=== PATIENT | female | born 1990 ===

== ENCOUNTER 2020-10-29 17:56 | Observation (INO) | payer OTHER ==
[2020-10-29] MEDS ORDERED: LACTATED RINGERS 1,000 ML IV ONE (18:56)
[2020-10-29 19:20] LABS: Bacteria,Urine 2+ /HPF (Negative); Bilirubin,Urine NEG (Negative); Blood,Urine NEG (Negative); Color,Urine Yellow (Yellow); Mucus,Urine FEW /HPF; Protein,Urine <15 mg/dL mg/dL (Negative); Urobilinogen,Urine < 2.0 mg/dL (<2.0)
--- NOTE | 2020-10-29 21:49 | History and Physical Report ---
History of Present Illness Date of examination: 10/29/20 Chief complaint: lower abdominal pain and break my water History of present illness: at 37.1wks with care at [facility]. Pt c/o lower abdominal pain and leakage of fluid earlier today. pt admits to movement or vaginal bleeding or headache. pt speaks Danish only. Pt has her significant other to bedside that speaks some Slovak. Past History Past Medical History: no pertinent history Past Surgical History: section (x2) Family/Genetic History: none Social history: no significant social history - Obstetrical History : 4 Para: 3 Hx # Term Pregnancies: 3 (c/s x2) Number of Living Children: 3 Medications and Allergies Allergies Allergy/AdvReac Type Severity Reaction Status Date / Time No Known Allergies Allergy Verified 10/29/20 18:56 Review of Systems All systems: negative (lower abd pain and leakage of fluid) - Vital Signs Vital signs: Vital Signs Pulse Pulse Ox 73 97 10/29/20 18:55 10/29/20 18:55 Temp Pulse Resp BP Pulse Ox 98.6 F 76 20 118/61 98 10/29/20 18:58 10/29/20 21:40 10/29/20 18:58 10/29/20 18:58 10/29/20 21:40 - Physical Exam Breasts: Positive: deferred Cardiovascular: Regular rate Lungs: Positive: Normal air movement Abdomen: Positive: normal appearance Uterus: Positive: enlarged Extremities: Positive: normal - Obstetrical FHR: category 1 Cervical Dilatation: 1 (per triage nurse) Cervical Effacement Percentage: 50 station: -4 Uterine Contraction Pattern: Absent Results All other labs normal. Assessment and Plan Term with previous c/section x2, with urinary incontinence (ROM plus neg), presumed UTI from urinalysis and BPP 08/07 (8/10 with reactive NST) 1. Admit for observation and repeat BPP in am and see if no breathing persistent 2. Obtain records in am 3. For repeat section if non-reassuring FHR 4. Will feed pt now and then keep NPO after midnight 5. Will treat with ancef for presumed UTI and send urine culture Plan of care discussed with pt. All questions encouraged and answered.
[2020-10-29] MEDS ORDERED: fentaNYL 100 MCG/2 ML INJ IV PRN (21:54)
[2020-10-29] MEDS ORDERED: PROMETHAZINE 25 MG TAB PO PRN (21:54)
[2020-10-29] MEDS ORDERED: MINERAL OIL 30 ML ORAL LIQD PO PRN (21:54)
[2020-10-29] MEDS ORDERED: LOPERAMIDE 2 MG CAP PO PRN (21:54)
[2020-10-29] MEDS ORDERED: CARBOPROST TROMETHAMINE 250 MCG/1 ML INJ IM PRN (21:54)
[2020-10-29] MEDS ORDERED: METHYLERGONOVINE MALEATE 0.2 MG/ML VIAL IM PRN (21:54)
[2020-10-29] MEDS ORDERED: ACETAMINOPHEN 325 MG TAB PO PRN (21:54)
[2020-10-29] MEDS ORDERED: OXYTOCIN 10 UNIT/1 ML INJ IM PRN (21:54)
[2020-10-29] MEDS ORDERED: miSOPROStol 200 MCG TAB PR PRN (21:54)
[2020-10-29] MEDS ORDERED: ONDANSETRON 4 MG/2 ML INJ IV PRN (21:54)
[2020-10-29] MEDS ORDERED: LIDOCAINE (2%) 20 MG/1 ML VIAL 20 ML MDV INFILTRATI ONE (21:54)
[2020-10-29] MEDS ORDERED: NalbUPHINE 10 MG/1 ML INJ IV PRN (21:54)
[2020-10-29] MEDS ORDERED: ePHEDrine SULFATE 50 MG/1 ML INJ IV PRN (21:54)
[2020-10-29] MEDS ORDERED: TERBUTALINE 1 MG/1 ML INJ SUB-Q PRN (21:54)
[2020-10-29] MEDS ORDERED: OXYTOCIN DRIP 30 UNITS/500 ML BAG IV SCH (22:00)
[2020-10-29 23:03] LABS: Hematocrit 35.8 % (30.3-42.9); Mean Corpuscular HGB Conc 34 % (30-34); Mean Corpuscular Volume 83 fl (79-97); Platelet Count 220 K/mm3 (140-440); Red Blood Count 4.34 M/mm3 (3.65-5.03); Red Cell Distribution Width 13.8 % (13.2-15.2)
--- NOTE | 2020-10-29 23:46 | Ultrasound Report ---
LIMITED OBSTETRICAL ULTRASOUND WITH BIOPHYSICAL PROFILE HISTORY: Ruptured membranes. FINDINGS: Limited obstetrical ultrasound was performed demonstrating a single viable intrauterine pre gnancy in the cephalic position with heart tones of 135 bpm. Amniotic fluid index is normal at 9.8. The largest pocket is quadrant 1 (4.5 cm). Biophysical profile is 6/8. 2 points were received for movement, posture/tone and amnioti c fluid volume. 0 points were received for breathing movements. IMPRESSION: 1. Unremarkable limited abdominal ultrasound. 2. Biophysical profile is 6/8. Signer Name: Orlando Mcgowan MD Signed: 10/29/2020 11:42 PM Workstation Name: [id number]
[2020-10-29] MEDS: LACTATED RINGERS 1,000 ML IV SCH (23:49)
[2020-10-30] MEDS ORDERED: ceFAZolin/NS 1 GM/50 ML 1 GM/50 ML BAG IV SCH (06:00)
[2020-10-30] MEDS: LACTATED RINGERS 1,000 ML IV SCH (06:08)
--- NOTE | 2020-10-30 09:12 | Event Note ---
Date: 10/30/20 Repeat BPP 10/07; will discharge pt home
--- NOTE | 2020-10-30 09:14 | Ultrasound Report ---
ULTRASOUND BIOPHYSICAL PROFILE INDICATION / CLINICAL INFORMATION: follow up previous BPP 08/07. COMPARISON: 10/29/2020 FINDINGS: BREATHING MOVEMENT = 2 GROSS BODY MOVEMENT = 2 TONE = 2 QUALITATIVE AMNIOTIC FLUID VOLUME = 2 TOTAL BIOPHYSICAL SCORE = 10/07 PRESENTATION: Cephalic. HEART RATE (beats per minute): 131 IMPRESSION: 1. biophysical profile = 10/07 Signer Name: Balaji John MD Signed: 10/30/2020 9:09 AM Workstation Name: [id number]
[2020-10-30 10:06] VITALS: BP 116/65
== END 2020-10-30 11:03 | disposition home or self-care (01) ==
LOC: TRG 17:56 → APU 17:57 → LD 21:54 → TRG 21:54
PROVIDERS: ADMIT Obstetrics & Gynecology; ATTEND Obstetrics & Gynecology
DX: O26.893 Other specified pregnancy related conditions, third trimester (principal); R10.30 Lower abdominal pain, unspecified; Z3A.37 37 weeks gestation of pregnancy; Z98.891 History of uterine scar from previous surgery
CPT/HCPCS: 36415; 59025; 76815; 76819; 81001; 84112; 85027; 86850; 86900; 86901; 87086; 96365; G0378; J0690; J7120

== ENCOUNTER 2020-11-17 11:32 | Outpatient (CLI) | payer OTHER ==
[2020-11-17 11:54] VITALS: BP 133/68
[2020-11-17] MEDS ORDERED: LACTATED RINGERS 1,000 ML IV ONE (13:00)
[2020-11-17 14:10] LABS: Bilirubin,Urine NEG (Negative); Blood,Urine NEG (Negative); Color,Urine Yellow (Yellow); Mucus,Urine FEW /HPF; Protein,Urine <15 mg/dL mg/dL (Negative); Urobilinogen,Urine < 2.0 mg/dL (<2.0)
[2020-11-17 14:12] LABS: Hematocrit 35.6 % (30.3-42.9); Hemoglobin 11.8 gm/dl (10.1-14.3); Mean Corpuscular HGB Conc 33 % (30-34); Mean Corpuscular Volume 83 fl (79-97); Platelet Count 229 K/mm3 (140-440); Red Blood Count 4.29 M/mm3 (3.65-5.03); Red Cell Distribution Width 14.3 % (13.2-15.2)
== END 2020-11-17 15:00 | disposition home or self-care (01) ==
LOC: TRG 11:32 → APU 11:33 → TRG 15:00
PROVIDERS: ATTEND Obstetrics & Gynecology
DX: O62.9 Abnormality of forces of labor, unspecified (principal); O48.0 Post-term pregnancy; Z3A.40 40 weeks gestation of pregnancy
CPT/HCPCS: 36415; 59025; 81001; 85027; 86850; 86900; 86901; 96360; J7120

== ENCOUNTER 2020-11-18 04:36 | Inpatient (IN) | payer MEDICAID, OTHER ==
[2020-11-18] MEDS ORDERED: miSOPROStol 200 MCG TAB ONE (05:32)
[2020-11-18 06:03] LABS: Hematocrit 38.3 % (30.3-42.9); Hemoglobin 12.2 gm/dl (10.1-14.3); Mean Corpuscular HGB Conc 32 % (30-34); Mean Corpuscular Volume 83 fl (79-97); Platelet Count 266 K/mm3 (140-440); Red Blood Count 4.64 M/mm3 (3.65-5.03); Red Cell Distribution Width 14.9 % (13.2-15.2)
[2020-11-18] MEDS ORDERED: miSOPROStol 200 MCG TAB PR ONE (06:05)
[2020-11-18] MEDS ORDERED: ACETAMINOPHEN 325 MG TAB PO PRN (06:06)
[2020-11-18] MEDS ORDERED: MINERAL OIL 30 ML ORAL LIQD PO PRN (06:06)
[2020-11-18] MEDS ORDERED: LIDOCAINE (2%) 20 MG/1 ML VIAL 20 ML MDV INFILTRATI ONE (06:06)
[2020-11-18] MEDS ORDERED: ePHEDrine SULFATE 50 MG/1 ML INJ IV PRN (06:06)
[2020-11-18] MEDS ORDERED: NalbUPHINE 10 MG/1 ML INJ IV PRN (06:06)
[2020-11-18] MEDS ORDERED: CARBOPROST TROMETHAMINE 250 MCG/1 ML INJ IM PRN (06:06)
[2020-11-18] MEDS ORDERED: OXYTOCIN 10 UNIT/1 ML INJ IM PRN (06:06)
[2020-11-18] MEDS ORDERED: METHYLERGONOVINE MALEATE 0.2 MG/ML VIAL IM PRN (06:06)
[2020-11-18] MEDS ORDERED: TERBUTALINE 1 MG/1 ML INJ SUB-Q PRN (06:06)
[2020-11-18] MEDS ORDERED: fentaNYL 100 MCG/2 ML INJ IV PRN (06:06)
[2020-11-18] MEDS ORDERED: LOPERAMIDE 2 MG CAP PO PRN (06:06)
[2020-11-18] MEDS ORDERED: miSOPROStol 200 MCG TAB PR PRN (06:06)
[2020-11-18] MEDS ORDERED: LACTATED RINGERS 1,000 ML IV SCH (06:15)
[2020-11-18 06:22] LABS: Hepatitis C Virus Antibody Non-Reactive (NonReactive)
[2020-11-18] MEDS ORDERED: MAGNESIUM HYDROXIDE (MOM) ORAL LIQD UDC PO PRN (06:25)
[2020-11-18] MEDS ORDERED: ONDANSETRON 4 MG/2 ML INJ IV PRN (06:25)
[2020-11-18] MEDS ORDERED: diphenhydrAMINE 25 MG CAP PO PRN (06:25)
[2020-11-18] MEDS ORDERED: LANOLIN/ZINC/DIMETHICONE (LANSINOH) 7 GM TP PRN (06:25)
[2020-11-18] MEDS ORDERED: PROMETHAZINE 25 MG TAB PO PRN (06:25)
[2020-11-18] MEDS ORDERED: WITCH HAZEL/ GLYCERIN PAD TP PRN (06:25)
--- NOTE | 2020-11-18 06:40 | History and Physical Report ---
History of Present Illness Date of examination: 11/18/20 Date of admission: 11/18/20 06:09 Chief complaint: contractions History of present illness: at 39.2wks by LMP c/w U/Sound with care at [facility] covered by [employer]. Pt c/o feeling ctx and screaming. Pt speaks cameroonian only. Pt already with SROM, time unknown, denies vaginal bleeding or headache. records found post delivery show pt had previous c/section x2 and was scheduled for repeat c/section later this week. labs with O+, neg screen, RPR, HepBsAg and HIV all neg; Abnormal 1hrgtt with normal 3hrgtt. Past History Past Medical History: no pertinent history Past Surgical History: section (x2) Social history: no significant social history - Obstetrical History Expected Date of Delivery: 11/23/20 Actual Gestation: 39 Week(s) 2 Day(s) : 4 Number of Living Children: 3 Medications and Allergies Allergies Allergy/AdvReac Type Severity Reaction Status Date / Time No Known Allergies Allergy Verified 10/29/20 18:56 Home Medications Medication Instructions Recorded Confirmed Last Taken Type No Known Home Medications [No 10/30/20 10/30/20 Unknown History Reported Home Medications] Active Meds: Active Medications Acetaminophen (Acetaminophen 325 Mg Tab) 650 mg PO Q4H PRN PRN Reason: Pain, Mild (1-3) Bisacodyl (Bisacodyl 10 Mg Rect Supp) 10 mg PA BID PRN PRN Reason: Constipation Carboprost Tromethamine (Carboprost Tromethamine 250 Mcg/1 Ml Inj) 250 mcg IM ONCE PRN PRN Reason: Uterine Bleeding Diphenhydramine HCl (Diphenhydramine 25 Mg Cap) 25 mg PO Q6H PRN PRN Reason: Itching Ephedrine Sulfate (Ephedrine Sulfate 50 Mg/1 Ml Inj) 10 mg IV Q2M PRN PRN Reason: Hypotension Fentanyl (Fentanyl 100 Mcg/2 Ml Inj) 100 mcg IV Q2H PRN PRN Reason: Pain,Severe (7-10) LABOR PAIN Last Admin: 11/18/20 05:10 Dose: 100 mcg Documented by: Oxytocin/Sodium Chloride (Pitocin/Ns 30 Unit/500ml) 30 units in 500 mls @ 2 mls/hr IV TITR ANAID; Protocol Lactated Ringer's (Lactated Ringers) 1,000 mls @ 125 mls/hr IV DIRECT ANAID Oxytocin/Sodium Chloride (Pitocin/Ns 30 Unit/500ml) 30 units in 500 mls @ 40 mls/hr IV TITR ANAID; Protocol Ibuprofen (Ibuprofen 600 Mg Tab) 600 mg PO Q6H ANAID Loperamide HCl (Loperamide 2 Mg Cap) 2 mg PO ONCE PRN PRN Reason: give with Hemabate Magnesium Hydroxide (Magnesium Hydroxide (Mom) Oral Liqd Udc) 30 ml PO HS PRN PRN Reason: Constipation Methylergonovine Maleate (Methylergonovine Maleate 0.2 Mg/Ml Vial) 0.2 mg IM ONCE PRN PRN Reason: Uterine Bleeding Mineral Oil (Mineral Oil 30 Ml Oral Liqd) 30 ml PO QHS PRN PRN Reason: Constipation Misoprostol (Misoprostol 200 Mcg Tab) 800 mcg PA ONCE PRN PRN Reason: Uterine Bleeding Multi-Ingredient Ointment (Lanolin/Zinc/Dimethicone (Lansinoh) 7 Gm) 1 applic TP PRN PRN PRN Reason: Sore Nipples Multivitamins/Iron/Calcium ( Pqe79-Th Fumarate-Folic Acid Vit Tab) 1 each PO QDAY ANAID Nalbuphine HCl (Nalbuphine 10 Mg/1 Ml Inj) 10 mg IV Q2H PRN PRN Reason: Pain, Moderate (4-6) Ondansetron HCl (Ondansetron 4 Mg/2 Ml Inj) 4 mg IV Q8H PRN PRN Reason: Nausea And Vomiting Oxycodone/Acetaminophen (Oxycodone /Acetaminophen 5-325mg Tab) 1 tab PO Q6H PRN PRN Reason: Pain, Moderate (4-6) Oxytocin (Oxytocin 10 Unit/1 Ml Inj) 10 unit IM ONCE PRN PRN Reason: Uterine Bleeding Promethazine HCl (Promethazine 25 Mg Tab) 25 mg PO Q6H PRN PRN Reason: Nausea And Vomiting Sodium Chloride (Sodium Chloride 0.9% 10 Ml Flush Syringe) 10 ml IV PRN NR Terbutaline Sulfate (Terbutaline 1 Mg/1 Ml Inj) 0.25 mg SUB-Q ONCE PRN PRN Reason: Hyperstimulation/Hypertonicity Witch Lidya/Glycerin (Witch Lidya/ Glycerin Pad) 1 each TP PRN PRN PRN Reason: Hemorrhoid/cleansing/soothing Review of Systems All systems: negative (screaming with contractions) - Vital Signs Vital signs: Vital Signs Pulse Ox 90 11/18/20 05:10 Temp Pulse Resp BP Pulse Ox 82 138/62 99 11/18/20 06:30 11/18/20 05:25 11/18/20 06:30 - Physical Exam Breasts: Positive: deferred Cardiovascular: Regular rate Lungs: Positive: Normal air movement Abdomen: Positive: normal appearance (with previous keloid midline scar and cholecystectomy scar) Genitourinary (Female): Positive: normal external genitalia Vulva: both: normal Vagina: Positive: normal moisture Uterus: Positive: enlarged (non-tender uterus) Extremities: Positive: normal - Obstetrical FHR: category 1 Uterine Contraction Monitor Mode: External Cervical Dilatation: 10 Cervical Effacement Percentage: 100 station: +2 Uterine Contraction Pattern: Regular Results Result Diagrams: 11/18/20 04:55 Abnormal lab results 11/18/20 Range/Units 04:55 WBC 12.8 H (4.5-11.0) K/mm3 MCH 26 L (28-32) pg All other labs normal. Assessment and Plan Term preg with previous c/section x2 and pushing with head about to crown, speaks cameroonian only and pushing and anesthesia not on the floor as yet. 1. Admit to labor and delivery, Needs repeat c/section but pt pushing and Category I FHR, see delivery note 2. records obtained post delivery 3. Consents obtained verbally for TOLAC with risks using language barrier 4. NICU called and present, anticipating precipitous delivery, no vacuum used Plan discussed with patient using airport operations officer phone and pt chose vaginal delivery. All questions encouraged and answered.
--- NOTE | 2020-11-18 06:54 | Procedure Note ---
OB Delivery Note - Delivery Date of Delivery: 11/18/20 Surgeon: ANDRIY CELESTE Estimated blood loss: 100cc - Vaginal Delivery presentation: vertex Delivery position: OA Intrapartum events: precipitous labor- <3hr, other(please specify) (previous section x2) Delivery induction: none Delivery monitor: external FHT Route of delivery: Delivery placenta: spontaneous Delivery cord: nuchal cord (x1) Delivery laceration: 2nd degree (perineal) Delivery repair: chromic Anesthesia: local Delivery comments: Successful precipitous of viable male , vertex, APGARS 8/9; wt 2830g and spontaneous delivery of intact placenta prior to anesthesiology arrival to floor. Bimanual with moderate atony and cytotec 800mcg placed per rectum by the nurse with my order. Previous c/section x2; Sustained 2nd perineal laceration and same repaired with 2-0 chromic running locked and subcutaneously and local anesthetic 1% lidocaine. Pt febrile post delivery with temp 100.6 per nurse report, therefore will treat with ancef 2gm x24hrs. WBC from labs normal. - Infant A at 1 minute: 8 at 5 minutes: 9 Infant Gender: Male (2830g)
[2020-11-18] MEDS ORDERED: OXYTOCIN DRIP 30 UNITS/500 ML BAG IV SCH ×2 (07:00)
[2020-11-18] MEDS: IBUPROFEN 600 MG TAB PO SCH ×3 (07:13→17:44)
[2020-11-18 08:30] LABS: Hemoglobin 11.7 gm/dl (10.1-14.3)
[2020-11-18] MEDS: PRENATAL VIT27-FE FUMARATE-FOLIC ACID VIT TAB PO SCH (11:56)
[2020-11-19] MEDS: IBUPROFEN 600 MG TAB PO SCH ×3 (00:10→17:50)
[2020-11-19] MEDS: oxyCODONE /ACETAMINOPHEN 5-325MG TAB PO PRN ×2 (08:08→20:36)
[2020-11-19 10:33] LABS: Basophils # (Auto) 0.1 K/mm3 (0.0-0.1); Basophils % (Auto) 0.5 % (0.0-1.8); Eosinophils # (Auto) 0.2 K/mm3 (0.0-0.4); Hemoglobin 11.9 gm/dl (10.1-14.3); Mean Corpuscular HGB Conc 33 % (30-34); Mean Corpuscular Volume 82 fl (79-97); Monocytes # (Auto) 0.5 K/mm3 (0.0-0.8); Monocytes % (Auto) 4.3 % (0.0-7.3); Platelet Count 219 K/mm3 (140-440); Red Blood Count 4.37 M/mm3 (3.65-5.03); Red Cell Distribution Width 14.8 % (13.2-15.2)
[2020-11-19] MEDS: PRENATAL VIT27-FE FUMARATE-FOLIC ACID VIT TAB PO SCH (10:55)
--- NOTE | 2020-11-19 11:07 | Progress Note ---
Assessment and Plan A: S/P Endometritis P: Continue routine pp orders Continue abt Awaiting H&H D/C home within 24-48 hrs Subjective - Subjective Date of service: 11/19/20 Patient reports: appetite normal, voiding normally, pain well controlled, ambulating normally : doing well, bottle feeding Objective - Vital Signs Latest vital signs: Vital Signs Temp Pulse Resp BP Pulse Ox Pulse Ox 11/19/20 07:30 97.8 F 72 18 109/62 96 11/19/20 01:11 98.1 F 69 18 111/90 97 11/18/20 19:15 99 11/18/20 15:46 98.3 F 81 20 119/54 96 11/18/20 12:03 99.1 F 80 20 121/60 97 Intake and Output 11/18/20 11/19/20 11/19/20 22:59 06:59 14:59 Intake Total 360 120 Output Total 600 300 Balance -240 -180 Intake: Oral 360 120 Output: Urine 600 300 Void 600 300 Other: Total, Intake Amount 120 120 Total, Output Amount 600 300 - Exam Breasts: Present: normal Abdomen: Present: normal appearance, soft, normal bowel sounds Vulva: both: normal Uterus: Present: normal, firm, fundal height below umbilicus Extremities: Present: normal Incision: Present: normal, intact - Labs Labs: Abnormal lab results 11/19/20 Range/Units 09:59 MCH 27 L (28-32) pg
[2020-11-20] MEDS: IBUPROFEN 600 MG TAB PO SCH ×2 (04:43→11:40)
--- NOTE | 2020-11-20 10:10 | Discharge Summary ---
Providers - Providers Date of Admission: 11/18/20 06:09 Date of discharge: 11/20/20 Attending physician: ANDRIY CELESTE Primary care physician: ANDRIY CELESTE Hospitalization Reason for admission: active labor, IUP at term Delivery: Episiotomy: none Laceration: 2nd degree Incision: normal, intact Other procedures: other (ABT r/t endometritis) complications: pelvic infection Discharge diagnosis: IUP at term delivered, [place] baby: male Hospital course: Pt was admiteed to [facility] in active labor. She had a . Pt developed a fever pp was diag with endometritis and started on abt. She was d/'d home in stable cond. See H&P, delivery summary, and pp notes. Condition at discharge: Stable Disposition: 01 HOME / SELF CARE / HOMELESS Plan - Discharge Medications Prescriptions: Ibuprofen [Motrin 600 MG tab] 600 mg PO Q6HR PRN #30 tablet PRN Reason: Menstrual Cramps - Provider Discharge Summary Activity: routine, no sex for 6 weeks, no heavy lifting 4 weeks, no strenuous exercise Diet: routine Instructions: routine Additional instructions: [] Smoking cessation referral if applicable(refer to patient education folder for contact #) [] Refer to [facility]'s [facility] Booklet Call your doctor immediately for: * Fever > 100.5 * Heavy vaginal bleeding ( >1 pad per hour) * Severe persistent headache * Shortness of breath * Reddened, hot, painful area to leg or breast * Drainage or odor from incision. * Keep incision clean and dry at all times and follow doctor's instructions regarding bathing/showering - Follow up plan Follow up: ANDRIY CELESTE MD [Primary Care Provider] - 6 Weeks
[2020-11-20] MEDS: PRENATAL VIT27-FE FUMARATE-FOLIC ACID VIT TAB PO SCH (11:40)
[2020-11-20 16:50] VITALS: BP 106/63
== END 2020-11-20 17:00 | disposition home or self-care (01) | DRG 806 ==
LOC: TRG 04:36 → APU 04:37 → LD 05:17 → UNDOADMIN 05:55 → LD 05:55 → TRG 05:55 → LD 06:09 → OB 08:42
PROVIDERS: ADMIT Obstetrics & Gynecology; ATTEND Obstetrics & Gynecology
PROC: 10E0XZZ Delivery of Products of Conception, External Approach (ICD-10-PCS; principal; 2020-11-18)
PROC: 0KQM0ZZ Repair Perineum Muscle, Open Approach (ICD-10-PCS; 2020-11-18)
DX: O62.3 Precipitate labor (principal); O86.12 Endometritis following delivery; Z37.0 Single live birth; O34.211 Maternal care for low transverse scar from previous cesarean delivery; Z3A.39 39 weeks gestation of pregnancy; Z20.822 Contact with and (suspected) exposure to COVID-19; O69.81X0 Labor and delivery complicated by cord around neck, without compression, not applicable or unspecified; O70.1 Second degree perineal laceration during delivery
CPT/HCPCS: 36415; 85014; 85018; 85025; 85027; 86592; 86706; 86762; 86803; 86850; 86900; 86901; 87806; G0378; J0690; J2590; J3010; J7120; U0003